=== PATIENT | female | born 1945 | race American Indian/Alaskan Native ===

== ENCOUNTER 2018-03-10 18:03 | Emergency (ER) | payer OTHER ==
--- NOTE | 2018-03-10 18:32 | PDOC ---
Rapid Medical Evaluation Chief Complaint: Pain Time Seen by Provider: 03/10/18 18:28 Medical Evaluation: Allergies Allergy/AdvReac Type Severity Reaction Status Date / Time No Known Allergies Allergy Verified 03/10/18 18:27 03/10/18 18:28 I have performed a brief in-person evaluation of this patient. The patient presents with a chief complaint of: RUQ pain x 1 week- cholecystectomy 15mos ago, no fevers/ No N/V, + dysuria x 10 days Pertinent physical exam findings: pale/ no CVAT, Abd soft/ NT/ No guarding I have ordered the following: UA/ Cx The patient will proceed to the ED for further evaluation. 03/10/18 18:31
[2018-03-10 18:33] VITALS: BMI 31.2
[2018-03-10 19:06] LABS: URINE APPEARANCE CLEAR; URINE BILIRUBIN NEGATIVE (<2.0 mg/dL); URINE COLOR LTYELLOW; URINE GLUCOSE (UA) NEGATIVE (NEGATIVE); URINE KETONE NEGATIVE (NEGATIVE); URINE LEUK ESTERASE NEGATIVE (NEGATIVE); URINE NITRITE NEGATIVE (NEGATIVE); URINE PROTEIN NEGATIVE (NEGATIVE); URINE UROBILINOGEN NEGATIVE mg/dL (0.2-1.0)
[2018-03-10 19:12] LABS: EPI CELLS RARE /HPF (FEW); URINE MUCUS RARE
--- NOTE | 2018-03-10 19:57 | PDOC ---
History of Present Illness - General Chief Complaint: Pain Stated Complaint: ABD PAIN Time Seen by Provider: 03/10/18 18:28 - History of Present Illness Initial Comments: 03/10/18 19:52 Ms. Whitaker is a 72 yo female w/ pmh of cholecystectomy who presents for evaluation of several days of RUQ abdominal pain. Patient also reports several days of gas/bloating which she has self treated with mylanta. Patient reports she otherwise feels well and does not require pain medication at this time. The patient denies chest pain, shortness of breath, headache and dizziness. Denies fever, chills, nausea, vomit, diarrhea and constipation. Denies dysuria, frequency, urgency and hematuria. Past History - Past Medical History Allergies/Adverse Reactions: Allergies Allergy/AdvReac Type Severity Reaction Status Date / Time No Known Allergies Allergy Verified 03/10/18 18:27 Home Medications: Ambulatory Orders Aspirin [ASA -] 81 mg PO DAILY 03/10/18 Mag Hydrox/Al Hydrox/Simeth [Mylanta *Suspension*] 30 ml PO ONCE 03/10/18 COPD: No - Surgical History Cholecystectomy: Yes - Suicide/Smoking/Psychosocial Hx Smoking History: Never smoked Review of Systems - Review of Systems Comments:: 03/10/18 19:53 GENERAL/CONSTITUTIONAL: No fever or chills. No weakness. HEAD, EYES, EARS, NOSE AND THROAT: No change in vision. No ear pain or discharge. No sore throat. CARDIOVASCULAR: No chest pain or shortness of breath RESPIRATORY: No cough, wheezing, or hemoptysis. GASTROINTESTINAL: +RUQ abdominal pain radiating to back with concurrent gas. No nausea, vomiting, diarrhea or constipation. GENITOURINARY: No dysuria, frequency, or change in urination. MUSCULOSKELETAL: No joint or muscle swelling or pain. No neck or back pain. SKIN: No rash NEUROLOGIC: No headache, vertigo, loss of consciousness, or change in strength/ sensation. ENDOCRINE: No increased thirst. No abnormal weight change HEMATOLOGIC/LYMPHATIC: No anemia, easy bleeding, or history of blood clots. ALLERGIC/IMMUNOLOGIC: No hives or skin allergy. *Physical Exam - Vital Signs Last Vital Signs Temp Pulse Resp BP Pulse Ox 98.7 F 67 18 149/71 100 03/10/18 18:28 03/10/18 18:28 03/10/18 18:28 03/10/18 18:28 03/10/18 18:28 - Physical Exam Comments: 03/10/18 19:53 GENERAL: Awake, alert, and fully oriented, in no acute distress HEAD: No signs of trauma, normocephalic, atraumatic EYES: PERRLA, EOMI, sclera anicteric, conjunctiva clear ENT: Auricles normal inspection, hearing grossly normal, nares patent, oropharynx clear without exudates. Moist mucosa NECK: Normal ROM, supple, no lymphadenopathy, JVD, or masses LUNGS: No distress, speaks full sentences, clear to auscultation bilaterally HEART: Regular rate and rhythm, normal S1 and S2, no murmurs, rubs or gallops, peripheral pulses normal and equal bilaterally. ABDOMEN: +RUQ TTP. Cholecystectomy scars appreciable and well healed. Otherwise soft, normoactive bowel sounds. No guarding, no rebound. No masses EXTREMITIES: Normal inspection, Normal range of motion, no edema. No clubbing or cyanosis. NEUROLOGICAL: Cranial nerves II through XII grossly intact. Normal speech, normal gait, no focal sensorimotor deficits SKIN: Warm, Dry, normal turgor, no rashes or lesions noted. ED Treatment Course - LABORATORY CBC & Chemistry Diagram: 03/10/18 20:47 03/10/18 20:47 - ADDITIONAL ORDERS Additional order review: Laboratory Results 03/10/18 18:32 Urine Color Ltyellow Urine Appearance Clear Urine pH 5.0 Ur Specific [place] 1.019 Urine Protein Negative Urine Glucose (UA) Negative Urine Ketones Negative Urine Blood 1+ H Urine Nitrite Negative Urine Bilirubin Negative Urine Urobilinogen Negative Ur Leukocyte Esterase Negative Urine WBC (Auto) 1 Urine RBC (Auto) 2 Ur Epithelial Cells Rare Urine Mucus Rare Medical Decision Making - Medical Decision Making 03/10/18 20:06 Ms. Whitaker is a 72 yo female w/ pmh as described who presents for evaluation of RUQ abdominal pain. Patient chart says dysuria for 10 days however patient specifically denies urinary changes to this provider. Endorses gas only. Patient put in for evaluation with US and CXR. 03/10/18 22:05 Patient pending US and CXR; after further discussion with family member new history provided including recent dry non-productive cough since travel from [place] 2 weeks ago including 18 hour flight. D-dimer ordered for r/o PE. 03/10/18 23:18 Labs grossly wnl as below. Patient pending US read, currently reports improvement of symptoms. 03/10/18 23:42 US grossly normal w/ possible subtle hydro. Given +1 blood in urine, patient possible passed renal stone. No concern for acute process in any case. CXR likewise negative. Discharging to home w/ urology follow-up as needed. Patient will follow-up with PCP this week for further evaluation. Laboratory Results - last 24 hr 03/10/18 03/10/18 03/10/18 18:32 20:47 20:47 WBC 9.4 RBC 4.97 Hgb 14.5 Hct 44.2 MCV 88.9 MCH 29.1 MCHC 32.7 RDW 13.3 Plt Count 291 MPV 7.9 Absolute Neuts (auto) 5.5 Neutrophils % 58.8 Lymphocytes % 33.9 Monocytes % 5.5 Eosinophils % 1.3 Basophils % 0.5 Nucleated RBC % 0 D-Dimer Sodium 141 Potassium 5.1 Chloride 103 Carbon Dioxide 30 Anion Gap 9 BUN 16 Creatinine 0.6 Creat Clearance w eGFR > 60 Random Glucose 92 Calcium 9.2 Total Bilirubin 0.8 AST 13 L ALT 21 Alkaline Phosphatase 94 Total Protein 8.0 Albumin 4.2 Lipase 187 Urine Color Ltyellow Urine Appearance Clear Urine pH 5.0 Ur Specific [place] 1.019 Urine Protein Negative Urine Glucose (UA) Negative Urine Ketones Negative Urine Blood 1+ H Urine Nitrite Negative Urine Bilirubin Negative Urine Urobilinogen Negative Ur Leukocyte Esterase Negative Urine WBC (Auto) 1 Urine RBC (Auto) 2 Ur Epithelial Cells Rare Urine Mucus Rare 03/10/18 22:30 WBC RBC Hgb Hct MCV MCH MCHC RDW Plt Count MPV Absolute Neuts (auto) Neutrophils % Lymphocytes % Monocytes % Eosinophils % Basophils % Nucleated RBC % D-Dimer 233 Sodium Potassium Chloride Carbon Dioxide Anion Gap BUN Creatinine Creat Clearance w eGFR Random Glucose Calcium Total Bilirubin AST ALT Alkaline Phosphatase Total Protein Albumin Lipase Urine Color Urine Appearance Urine pH Ur Specific [place] Urine Protein Urine Glucose (UA) Urine Ketones Urine Blood Urine Nitrite Urine Bilirubin Urine Urobilinogen Ur Leukocyte Esterase Urine WBC (Auto) Urine RBC (Auto) Ur Epithelial Cells Urine Mucus *DC/Admit/Observation/Transfer Diagnosis at time of Disposition: Abdominal pain Qualifiers: Abdominal location: unspecified location Qualified Code(s): R10.9 - Unspecified abdominal pain - Discharge Dispostion Disposition: HOME - Referrals Referrals: Nelsy Das MD [Primary Care Provider] - Lew Bowden MD [Staff Physician] - - Patient Instructions Printed Discharge Instructions: DI for Abdominal Pain-Adult Additional Instructions: You were evaluated today in the ER for your abdominal pain. We evaluated you with ultrasound, chest x-ray, and labs and no emergent findings were found ( including negative d-dimer test). Please follow-up with primary care provider later this week as discussed for further evaluation. Return to ER if any increase in symptoms, fever, chills, or other concerning symptoms. We have also provided urology information for possible passed kidney stone that may have contributed to symptoms for use as needed. - Post Discharge Activity
[2018-03-10] MEDS ORDERED: DICYCLOMINE HCL 10 MG CAPSULE PO ONE (20:08)
[2018-03-10] MEDS ORDERED: MAG HYDROX/AL HYDROX/SIMETH 30 ML UNIT-DOSE CUP PO ONE (20:08)
[2018-03-10] MEDS ORDERED: SODIUM CHLORIDE 1,000 ML IV STA (20:08)
[2018-03-10] MEDS ORDERED: FAMOTIDINE 20 MG/50 ML IVPB 20 MG/50 ML MG IVPB ONE ×2 (20:08→21:25)
[2018-03-10 21:07] LABS: BASO % 0.5 % (0-2.0); EOS % 1.3 % (0-4.5); HEMATOCRIT 44.2 % (32.4-45.2); HEMOGLOBIN 14.5 GM/dL (10.7-15.3); LYMPH % 33.9 % (8-40); MCH 29.1 pg (25.7-33.7); MCHC 32.7 g/dl (32.0-36.0); MEAN CELL VOLUME 88.9 fl (80-96); MEAN PLT VOLUME 7.9 fl (7.5-11.1); MONO % 5.5 % (3.8-10.2); NEUT % 58.8 % (42.8-82.8); PLATELET COUNT 291 K/MM3 (134-434); RBC 4.97 M/mm3 (3.60-5.2); RDW 13.3 % (11.6-15.6); WHITE BLOOD COUNT 9.4 K/mm3 (4.0-10.0)
--- NOTE | 2018-03-10 21:07 | PDOC ---
Attending Attestation - Resident Resident Name: Yonny Taylor - ED Attending Attestation I have performed the following: I have examined & evaluated the patient, The case was reviewed & discussed with the resident, I agree w/resident's findings & plan - HPI HPI: 03/10/18 21:05 The patient is a 72 year old female, with a significant past medical history of GERD and s/p chlolecystectomy, on daily aspirin and mylanta as needed, who presents to the emergency department with a couple of days of intermittent right upper quadrant pain which radiates to her back. She reportedly returned from [place] earlier this month. no precipitating factors, no trauma. The patient denies chest pain, shortness of breath, headache and dizziness. The patient denies fever, chills, nausea, vomit, diarrhea and constipation. The patient denies dysuria, frequency, urgency and hematuria. Allergies: NKDA Past surgical history: cholecystectomy Social history: denies toxic habits 03/10/18 23:46 - Physicial Exam PE: 03/10/18 21:05 NAD, well appearing, PERRL, EOMI, MMM, nl conjunctiva, anicteric; neck supple. lungs clear, RRR, +abdomen is tender to RUQ, +right flank TTP; no peritoneal signs. soft abdomen, no CVAT.. REYES x4, no focal neuro deficits. No peripheral edema. normal color for ethnicity, WWP. - Medical Decision Making 03/10/18 21:06 Vital signs reviewed, wnl. Prior notes reviewed, including admissions, discharges and consultations. laboratory results and imaging reviewed, basic labs and lytes wnl, notable for normal LFTs/lipase. UA_normal, no signs of infection, +small blood on UA test. D dimer negative, less likely PE or dissection. CXR_clear, no acute pathology RUQ sono to r/o retained stones vs sludge, given RUQ pain; dilated CBD c/w age and post cholecystomy, otherwise unremarkable. renal sono ?subtle hydro on right, but no stones. ED course: no acute events, remained stable and well appearing. Clinically improved after interventions, including IVF< maalox, pepcid, bentyl. most likely biliary colic vs renal colic, but sx improved, well appearing, abdomen nonperitoneal discussed results with pt and family, urology f/u provided, adequate hydration advised. Dispo: Pt to be discharged in stable condition. Patient and family made aware of impression and plan, return precautions discussed (including but not limited to worsening pain or symptoms), fevers, or signs of infection, chest pain, respiratory distress, inability to tolerate oral intake, dehydration, syncope, or neurologic changes). Follow up with PMD and/or specialist as recommended, follow up information provided, take medications as instructed for duration of time. continue with supportive care, avoid triggers and precipitants. All questions answered to patient's satisfaction and expressed understanding and comfort with this. 03/10/18 21:32 03/10/18 23:45
[2018-03-10] MEDS ORDERED: MAG HYDROX/AL HYDROX/SIMETH 30 ML UNIT-DOSE CUP ONE (21:24)
[2018-03-10] MEDS ORDERED: DICYCLOMINE HCL 10 MG CAPSULE ONE (21:24)
[2018-03-10 21:25] LABS: ALBUMIN 4.2 g/dl (3.4-5.0); ALK PHOS 94 U/L (45-117); ANION GAP 9 MMOL/L (8-16); BILIRUBIN,TOTAL 0.8 mg/dL (0.2-1); BLOOD UREA NITROGEN 16 mg/dL (7-18); CALCIUM 9.2 mg/dL (8.5-10.1); CHLORIDE 103 mmol/L (98-107); CO2 30 mmol/L (21-32); CREATININE 0.6 mg/dL (0.55-1.3); GLUCOSE,RANDOM 92 mg/dL (74-106); LIPASE 187 U/L (73-393); POTASSIUM 5.1 mmol/L (3.5-5.1); SGOT/AST 13 U/L (15-37); SGPT/ALT 21 U/L (13-61); SODIUM 141 mmol/L (136-145)
[2018-03-10 23:57] VITALS: BP 132/76; PULSE 78; TEMP 98.1
== END 2018-03-11 00:12 | disposition home or self-care (01) ==
LOC: JER 18:03
PROC: 3E033GC Introduction of Other Therapeutic Substance into Peripheral Vein, Percutaneous Approach (ICD-10-PCS; principal; 2018-03-10)
PROC: 3E0337Z Introduction of Electrolytic and Water Balance Substance into Peripheral Vein, Percutaneous Approach (ICD-10-PCS; 2018-03-10)
DX: R10.9 Unspecified abdominal pain (principal)
CPT/HCPCS: 36415; 71046-TC-FY; 76705-TC; 80053; 81003; 81015; 83690; 85025; 85379; 87086; 99281-25; J7030

== ENCOUNTER 2018-12-27 18:03 | Emergency (ER) | payer OTHER ==
--- NOTE | 2018-12-27 18:11 | PDOC ---
Rapid Medical Evaluation Time Seen by Provider: 12/27/18 18:05 Medical Evaluation: Allergies Allergy/AdvReac Type Severity Reaction Status Date / Time No Known Allergies Allergy Verified 03/10/18 18:27 12/27/18 18:06 CC: RUQ pain x3 days PE: RUQ tenderness. No guarding. Orders: abd w/u with sono Patient will proceed to ED for continued evaluation. Discharge Disposition - Diagnosis Abdominal pain - Referrals - Patient Instructions - Post Discharge Activity
[2018-12-27] MEDS ORDERED: SODIUM CHLORIDE 1,000 ML IV STA (18:12)
[2018-12-27 18:13] VITALS: TEMP 98.6; BMI 27.8
[2018-12-27 18:53] LABS: URINE APPEARANCE CLEAR; URINE BILIRUBIN NEGATIVE (NEGATIVE); URINE COLOR DK YELLOW; URINE GLUCOSE (UA) NEGATIVE (NEGATIVE); URINE KETONE TRACE (NEGATIVE); URINE LEUK ESTERASE NEGATIVE (NEGATIVE); URINE NITRITE NEGATIVE (NEGATIVE); URINE PROTEIN NEGATIVE (NEGATIVE)
[2018-12-27 19:20] LABS: ALBUMIN 4.1 g/dl (3.4-5.0); BILIRUBIN,TOTAL 1.4 mg/dL (0.2-1); BLOOD UREA NITROGEN 24.2 mg/dL (7-18); CALCIUM 9.4 mg/dL (8.5-10.1); POTASSIUM 4.8 mmol/L (3.5-5.1); TOT PROT 7.3 g/dl (6.4-8.2)
[2018-12-27 19:23] LABS: BASO % 0.5 % (0-2.0); EOS % 0.8 % (0-4.5); HEMATOCRIT 42.5 % (32.4-45.2); HEMOGLOBIN 14.2 GM/dL (10.7-15.3); LYMPH % 27.1 % (8-40); MCH 29.9 pg (25.7-33.7); MCHC 33.4 g/dl (32.0-36.0); MEAN CELL VOLUME 89.7 fl (80-96); MEAN PLT VOLUME 8.3 fl (7.5-11.1); NEUT % 65.6 % (42.8-82.8); PLATELET COUNT 265 K/MM3 (134-434); RBC 4.74 M/mm3 (3.60-5.2); WHITE BLOOD COUNT 8.1 K/mm3 (4.0-10.0)
--- NOTE | 2018-12-27 20:23 | PDOC ---
History of Present Illness - General Chief Complaint: Pain, Acute Stated Complaint: ABD PAIN Time Seen by Provider: 12/27/18 18:05 History Source: Patient (Divehi speaking), Family Exam Limitations: Language Barrier (Divehi) - History of Present Illness Initial Comments: 12/27/18 20:19 Ms. Whitaker is a 73 y/o maori speaking woman with hx cholecystectomy, unspecified murmur presenting with three days of ongoing RUQ pain. She is accompanied by her daughter in law whom speaks Chinese fluently. She reports that the pain began three days ago, described the pain as an intermittent ache that spreads up her R flank to her back. She reports worsening of the pain with twisting of her abdomen and with palpation of her R flank and back. She reports that she is always active, and cleans and lifts/moves things around the house. She denies any heavy lifting immediately prior to the onset of pain, any trauma or injury to the site. She denies any changes in appetite, any N/V, any chest pain or shortness of breath. She denies taking anything for the pain prior to her arrival today, and reports that the pain has reduced since her arrival, to a 3/10 severity. She denies any fevers, chills, palpitations, headaches. She had her gallbladder removed in 2017, and has never had a kidney stone. She reports that since her arrival, she has discussed with Dr. Benitez who scheduled her for an appointment in his office in the morning at 1000. Past History - Past Medical History Allergies/Adverse Reactions: Allergies Allergy/AdvReac Type Severity Reaction Status Date / Time No Known Allergies Allergy Verified 12/27/18 18:13 Home Medications: Ambulatory Orders Aspirin [ASA -] 81 mg PO DAILY 03/10/18 Mag Hydrox/Al Hydrox/Simeth [Mylanta *Suspension*] 30 ml PO ONCE 03/10/18 COPD: No - Surgical History Cholecystectomy: Yes - Suicide/Smoking/Psychosocial Hx Smoking History: Never smoked Hx Alcohol Use: No Drug/Substance Use Hx: No Review of Systems - Review of Systems Able to Perform ROS?: Yes Comments:: ROS: GENERAL/CONSTITUTIONAL: No fever or chills. No weakness. HEAD, EYES, EARS, NOSE AND THROAT: No change in vision. No ear pain or discharge. No sore throat. CARDIOVASCULAR: No chest pain or shortness of breath RESPIRATORY: No cough, wheezing, or hemoptysis. GASTROINTESTINAL: No nausea, vomiting, diarrhea or constipation. GENITOURINARY: No dysuria, frequency, or change in urination. MUSCULOSKELETAL: Mild R sided back pain. No joint or muscle swelling or pain. No neck pain. SKIN: No rash NEUROLOGIC: No headache, vertigo, loss of consciousness, or change in strength/ sensation. ENDOCRINE: No increased thirst. No abnormal weight change HEMATOLOGIC/LYMPHATIC: No anemia, easy bleeding, or history of blood clots. ALLERGIC/IMMUNOLOGIC: No hives or skin allergy. *Physical Exam - Vital Signs Last Vital Signs Temp Pulse Resp BP Pulse Ox 98.6 F 77 16 148/75 94 L 12/27/18 18:09 12/27/18 18:09 12/27/18 18:09 12/27/18 18:09 12/27/18 18:09 - Physical Exam Comments: PE: GENERAL: Awake, alert, and fully oriented, in no acute distress HEAD: No signs of trauma, normocephalic, atraumatic EYES: PERRLA, EOMI, sclera anicteric, conjunctiva clear ENT: Auricles normal inspection, hearing grossly normal, nares patent, oropharynx clear without exudates. Moist mucosa NECK: Normal ROM, supple, no lymphadenopathy, JVD, or masses LUNGS: No distress, speaks full sentences, clear to auscultation bilaterally HEART: Regular rate and rhythm, normal S1 and S2, no murmurs, rubs or gallops, peripheral pulses normal and equal bilaterally. ABDOMEN: Soft, nontender, normoactive bowel sounds. No guarding, no rebound. No masses BACK: Mild tenderness to palpation of R lateral back, flank. No rash, erythema, or injury noted. EXTREMITIES : Normal inspection, Normal range of motion, no edema. No clubbing or cyanosis. NEUROLOGICAL: Cranial nerves II through XII grossly intact. Normal speech, normal gait, no focal sensorimotor deficits SKIN: Warm, Dry, normal turgor, no rashes or lesions noted ED Treatment Course - LABORATORY CBC & Chemistry Diagram: 12/27/18 18:44 12/27/18 18:44 - ADDITIONAL ORDERS Additional order review: Laboratory Results 12/27/18 12/27/18 12/27/18 18:44 18:44 18:44 Sodium 142 Potassium 4.8 Chloride 107 Carbon Dioxide 29 Anion Gap 6 L BUN 24.2 H Creatinine 1.0 Est GFR (CKD-EPI)AfAm 64.73 Est GFR (CKD-EPI)NonAf 55.85 Random Glucose 171 H Calcium 9.4 Total Bilirubin 1.4 H AST 15 ALT 21 Alkaline Phosphatase 78 Creatine Kinase 54 Troponin I < 0.02 Total Protein 7.3 Albumin 4.1 Lipase 149 Urine Color Dk yellow Urine Appearance Clear Urine pH 5.0 Ur Specific [place] 1.030 Urine Protein Negative Urine Glucose (UA) Negative Urine Ketones Trace H Urine Blood Negative Urine Nitrite Negative Urine Bilirubin Negative Urine Urobilinogen 1.0 Ur Leukocyte Esterase Negative 12/27/18 18:44 RBC 4.74 MCV 89.7 MCHC 33.4 RDW 13.0 MPV 8.3 Neutrophils % 65.6 Lymphocytes % 27.1 D Monocytes % 6.0 Eosinophils % 0.8 Basophils % 0.5 Medical Decision Making - Medical Decision Making 12/27/18 20:21 73 y/o F with hx cholecystectomy p/w three days ongoing RUQ pain radiating to back, worsened with palpation, with no diminishing of appetite, no N/V, no fevers, consistent with MSK back pain vs leftover gallbladder pouch pathology vs nephrolithiasis. PE less likely but also possible given laterality of pain, and given patient's age. --- Patient brought to ultrasound suite for abd ultrasound. Her family member reports that her pain has reduced since their arrival, and they have spoken with her PCP whom she intends to see at 1000 tomorrow if she is discharged. 12/27/18 20:23 EKG review - normal sinus rhythm, no acute changes. Troponin returned negative WBC - 8 UA - negative Total Billirubin - 1.4 AST/ALT within normal limits Ultrasound image appears to have CBD enlargement approx 1.1 cm 12/27/18 20:30 Per US formal report, CBD enlargement is physiologic change, and unchanged from her prior imaging. No acute pathology, no free fluid in abdomen. 12/27/18 22:[address] Barrett. Plan for CT PE to rule out atypical presentation of PE, as well as CT abd/pelvis to evaluate possible renal pathology. Patient had 20 gauge IV inserted at [facility], wheeled to CT. CT pending. --- CT PE, CT abdomen/pelvis both negative for acute process. Plan for discharge, follow up with PCP tomorrow morning 1000. *DC/Admit/Observation/Transfer Diagnosis at time of Disposition: Abdominal pain Qualifiers: Abdominal location: right upper quadrant Qualified Code(s): R10.11 - Right upper quadrant pain - Discharge Dispostion Disposition: HOME Condition at time of disposition: Stable Decision to Admit order: No - Referrals Referrals: Nelsy Das MD [Primary Care Provider] - - Patient Instructions Printed Discharge Instructions: DI for Abdominal Pain-Adult Additional Instructions: You were evaluated in the Emergency Department for abdominal pain. We checked your bloodwork, conducted ultrasound and CT imaging of your lungs and abdomen. There were no immediately concerning signs on your imaging. The radiologist noted a small nodule in your right lung. Please do a follow up CT with radiology in three months. Please follow up with your primary care provider tomorrow morning at your scheduled appointment. Please return to the Emergency Department if you develop high fevers with cough, weakness, confusion. - Post Discharge Activity
--- NOTE | 2018-12-28 | PDOC ---
Documentation entered by Yoselin Bowen SCRIBE, acting as scribe for Melinda Barrett DO. Melinda Barrett DO: This documentation has been prepared by the Andrés espinal Adrianna, SCRIBE, under my direction and personally reviewed by me in its entirety. I confirm that the documentation accurately reflects all work, treatment, procedures, and medical decision making performed by me. Attending Attestation - Resident Resident Name: Arnie Paul - ED Attending Attestation I have performed the following: I have examined & evaluated the patient, The case was reviewed & discussed with the resident, I agree w/resident's findings & plan - HPI HPI: The patient is a 73 year old female, with a significant PMH of GERD, who presents to the ED for evaluation of back pain for 3 days. Patient endorses sudden onset right mid back pain that radiates to the RUQ, and is exacerbated with movement. Patient has cholecystectomy in the past, and her PCP advised her to come to the ED for evaluation. Denies fever, chills, nausea, vomit, diarrhea, constipation, urinary symptoms. Allergies: NKA, NKDA Past surgical history: cholecystectomy Social history: Denies EtOH, tobacco, illicit drug use PCP: Dr. Das - Physicial Exam PE: GENERAL: Awake, in no acute distress HEAD: No signs of trauma EYES: ENT:clear without exudates. Moist mucosa NECK: Normal ROM, LUNGS:. Normal work of breathing. HEART: Regular rate and rhythm, ABDOMEN: Soft, nondistended CHEST WALL: BACK: point tenderness right thoracic region, PVM reproducing CC EXTREMITIES:. No erythema, or tenderness NEUROLOGICAL: Alert, SKIN: Warm, Dry 12/27/18 23:58 - Medical Decision Making 12/27/18 23:59 73-year-old female with right mid back pain radiating to the abdomen CTA of the chest shows no pulmonary embolism There is a small questionable focal area of infiltrate at the right base Pneumonia unlikely due to lack of cough, fever or elevated white blood cell count CT scan of the abdomen and pelvis shows no acute abnormality Patient likely has a musculoskeletal cause of pain as it is reproducible on exam He will be discharged home to follow-up with their regular physician
[2018-12-28] MEDS ORDERED: KETOROLAC TROMETHAMINE 15 MG/ML VIAL IVPUSH ONE (00:04)
[2018-12-28] MEDS ORDERED: KETOROLAC TROMETHAMINE 15 MG/ML VIAL ONE (00:11)
[2018-12-28 00:22] VITALS: BP 144/75; PULSE 78
--- NOTE | 2018-12-28 16:12 | EKG ---
Test Reason : Blood Pressure : / mmHG Vent. Rate : 073 BPM Atrial Rate : 073 BPM P-R Int : 154 ms QRS Dur : 090 ms QT Int : 404 ms P-R-T Axes : 053 007 024 degrees QTc Int : 445 ms NORMAL SINUS RHYTHM NORMAL ECG NO PREVIOUS ECGS AVAILABLE Confirmed by MD RACHELLE, DUSTIN ([id number]) on 12/28/2018 4:12:02 PM Referred By: Confirmed By:DUSTIN BUSH MD
== END 2018-12-28 00:23 | disposition home or self-care (01) ==
LOC: JER 18:03
PROC: 3E0333Z Introduction of Anti-inflammatory into Peripheral Vein, Percutaneous Approach (ICD-10-PCS; principal; 2018-12-27)
DX: R10.11 Right upper quadrant pain (principal)
CPT/HCPCS: 36415; 71275-TC; 74177-TC; 76705-TC; 80053; 81003; 82550; 83690; 84484; 85025; 87077; 87086; 93005; 93010; 96374; 99283-25